=== PATIENT | female | born 1995 | race Caucasian/White ===

== ENCOUNTER 2021-09-18 18:00 | Emergency (ER) | payer OTHER ==
[~2021-09-18] VITALS: Ht 177.8 cm; Wt 81.6 kg
[2021-09-18] MEDS ORDERED: DOXYCYCLINE MO100 M1 PO (19:38)
== END 2021-09-18 20:13 | disposition home or self-care (01) ==
LOC: ED 18:00
DX: L03.116 Cellulitis of left lower limb (principal); Z79.899 Other long term (current) drug therapy
CPT/HCPCS: 99283

== ENCOUNTER 2023-07-04 08:20 | Inpatient (IN) | payer OTHER ==
[~2023-07-04] VITALS: Ht 177.8 cm; Wt 98.0 kg
[~2023-07-04 08:20] MED LIST: DOXYCYCLINE MO100 M1 PO
[2023-07-04 09:29] LABS: HEMATOCRIT 38.1 % (35.0-50.0); HEMOGLOBIN 12.4 g/dL (12.0-18.0); MCH 28.1 (27-36); MCHC 32.6 g/dl (30-36); MCV 86.4 fl (81-99); RBC 4.41 M/ul (4.3-5.7); RDW 14.8 (10.5-15.0)
[2023-07-04 09:50] VITALS: BP 133/72
[2023-07-04 10:07] LABS: AMPHETAMINES, URINE NEGATIVE (NEGATIVE); BARBITURATES, URINE NEGATIVE (NEGATIVE); BENZODIAZEPINE, URINE NEGATIVE (NEGATIVE); BUPRENORPHINE, URINE NEGATIVE (NEGATIVE); CANNABINOID, URINE NEGATIVE (NEGATIVE); COCAINE, URINE NEGATIVE (NEGATIVE); ECSTASY, URINE NEGATIVE (NEGATIVE); FENTANYL, URINE NEGATIVE (NEGATIVE); METHADONE, URINE NEGATIVE (NEGATIVE); OPIATES, URINE NEGATIVE (NEGATIVE); OXYCODONE, URINE NEGATIVE (NEGATIVE); PHENCYCLIDINE, URINE NEGATIVE (NEGATIVE)
[2023-07-04 10:08] VITALS: BP 133/72
[2023-07-04 10:09] LABS: ABO A
[2023-07-04 10:10] LABS: ANTIBODY SCREEN NEGATIVE; RH POSITIVE
--- NOTE | 2023-07-04 17:27 | PR ---
[facility] [address] [place], [place] [address] Signed Progress Notes IP Datetime Report Generated by CPN: 07/04/2023 17:27 PROGRESS NOTES: [id number] Impression: Reassuring Heart Rate Procedures: Sterile Vag Exam Plan: Continue Present Management Other Plans: Consider epidural / IUPC placement VITAL SIGNS: [id number] Vital Signs: Reviewed; Within Normal Limits EXAM: [id number] Dilatation: 3.0 Effacement: 80 Station: -1 Contractions: q 2 min MEMBRANES: [id number] Membranes Status: Intact Amniotic Fluid Color: Clear ROM Note: More clear fluid noted Comments: Pt seen and examined. Very uncomfortable w/ contractions. Pt now 3cm / 80. Discussed slow progress on pitocin and recommended intrauterine monitoring of contraction strength w/ IUPC. Contractions and cervical exams very uncomfortable and recommend epidural placement prior to IUPC. Pt will consider. FETUS A: [id number] FHR Baseline: 145 Variability: Moderate 6-25bpm Accelerations: 15X15 Decelerations: None FHR Category: Category I Presentation: Vertex Comments on Fetus A: No evidence of metabolic acidosis FETUS B: [id number] Signing Physician: Cindi Murphy DO Copies: ~ *Electronically Signed* 07/04/23 7875 CINDI MURPHY (FELICITA) DO PATIENT NAME: JOHN OLSON PROGRESS NOTE DATE OF : 97 PHYSICIAN: CINDI MURPHY (JD) DO RPT #: [id number] REPORT IS CONFIDENTIAL AND NOT TO BE RELEASED WITHOUT AUTHORIZATION
--- NOTE | 2023-07-04 20:24 | PR ---
[facility] [address] [facility] [place], [place] [address] Signed Progress Notes IP Datetime Report Generated by IRMA: 07/04/2023 20:24 PROGRESS NOTES: [id number] Impression: Reassuring Heart Rate Procedures: Intrauterine Pressure Catheter; Sterile Vag Exam Plan: Continue Present Management Other Plans: Consider epidural / IUPC placement VITAL SIGNS: [id number] Vital Signs: Reviewed; Within Normal Limits EXAM: [id number] Dilatation: 3.5 Effacement: 90 Station: -2 Contractions: q 3 to 4 min MEMBRANES: [id number] Membranes Status: Intact Amniotic Fluid Color: Clear ROM Note: More clear fluid noted Comments: Minimal progress. Will place IUPC and restart pitocin as needed. FETUS A: [id number] FHR Baseline: 145 Variability: Moderate 6-25bpm Accelerations: 15X15 Decelerations: None FHR Category: Category I Presentation: Vertex Comments on Fetus A: No evidence of metabolic acidosis FETUS B: [id number] Signing Physician: Dhara Dorman MD Copies: ~ *Electronically Signed* 07/04/232023 DHARA DORMAN MD PATIENT NAME: JOHN OLSON PROGRESS NOTE DATE OF : 97 PHYSICIAN: DHARA DORMAN MD RPT #: [id number] REPORT IS CONFIDENTIAL AND NOT TO BE RELEASED WITHOUT AUTHORIZATION
--- NOTE | 2023-07-04 21:59 | PR ---
[facility] [address] [facility] [place], [place] [address] Signed Progress Notes IP Datetime Report Generated by CPN: 07/04/2023 21:59 PROGRESS NOTES: [id number] Impression: Reassuring Heart Rate Procedures: Sterile Vag Exam Plan: Continue Present Management Other Plans: Consider epidural / IUPC placement VITAL SIGNS: [id number] Vital Signs: Reviewed; Within Normal Limits EXAM: [id number] Dilatation: 4.0 Effacement: 90 Station: -2 Contractions: q 2 to 4 min MEMBRANES: [id number] Membranes Status: Intact Amniotic Fluid Color: Clear ROM Note: More clear fluid noted Comments: Comfortable. Some progress. Contraction pattern adequate overall and status reassuring. Will continue. FETUS A: [id number] FHR Baseline: 145 Variability: Moderate 6-25bpm Accelerations: 15X15 Decelerations: None FHR Category: Category I Presentation: Vertex Comments on Fetus A: No evidence of metabolic acidosis FETUS B: [id number] Signing Physician: Dhara Dorman MD Copies: ~ *Electronically Signed* 07/04/23 2159 DHARA DORMAN MD PATIENT NAME: JOHN OLSON PROGRESS NOTE DATE OF : 97 PHYSICIAN: DHARA DORMAN MD RPT #: [id number] REPORT IS CONFIDENTIAL AND NOT TO BE RELEASED WITHOUT AUTHORIZATION
--- NOTE | 2023-07-05 05:05 | PR ---
[facility] [address] [facility] [place], [place] [address] Signed Progress Notes IP Datetime Report Generated by IRMA: 07/05/2023 05:05 PROGRESS NOTES: [id number] Impression: Normal Progression of Labor; Reassuring Heart Rate Procedures: Sterile Vag Exam Plan: Continue Present Management Other Plans: Consider epidural / IUPC placement VITAL SIGNS: [id number] Vital Signs: Reviewed; Within Normal Limits EXAM: [id number] Dilatation: 7.0 Effacement: 90 Station: -1 Contractions: q 2 to 4 min MEMBRANES: [id number] Membranes Status: Intact Amniotic Fluid Color: Clear ROM Note: More clear fluid noted Comments: Progressing well. Will continue. FETUS A: [id number] FHR Baseline: 145 Variability: Moderate 6-25bpm Accelerations: 15X15 Decelerations: None FHR Category: Category I Presentation: Vertex Comments on Fetus A: No evidence of metabolic acidosis FETUS B: [id number] Signing Physician: Dhara Dorman MD Copies: ~ *Electronically Signed* 07/05/23 0505 DHARA DORMAN MD PATIENT NAME: JOHN OLSON PROGRESS NOTE DATE OF : 97 PHYSICIAN: DHARA DORMAN MD RPT #: [id number] REPORT IS CONFIDENTIAL AND NOT TO BE RELEASED WITHOUT AUTHORIZATION
[2023-07-06 05:30] LABS: HEMATOCRIT 31.8 % (35.0-50.0); HEMOGLOBIN 10.4 g/dL (12.0-18.0); MCH 28.4 (27-36); MCHC 32.8 g/dl (30-36); MCV 86.7 fl (81-99); RBC 3.67 M/ul (4.3-5.7)
--- NOTE | 2023-07-06 07:21 | PR ---
[facility] [address] [facility] [place], [place] [address] Signed PP Progress Notes Datetime Report Generated by IRMA: 07/06/2023 07:21 SUBJECTIVE: [id number] Pain: Within Normal Limits Bowel Movement: No Vital Signs: [id number] Vital Signs: Reviewed; Within Normal Limits Cardiovascular: Not Done Respiratory: Not Done Abdomen/Uterus: Abnormal Lochia: Normal Vulva/Perineum: Not Done Breasts: Not Done CVA Tenderness: Not Done Extremities: Normal Incision: Not Applicable Progress: Abnormal Exam Comments: Fundus firm, NT @ U-1. H/H 10.4/31.8, WBC 16.2, plat 275k IMPRESSION/PLAN/PROCEDURES: [id number] Impression: Normal Progression; Difficulties Plan: Continue Present Management Procedures: None Progress Notes: Doing well except for breast feeding issues. Will work on this today with probable discharge in the am. Signing Physician: Dhara Dorman MD Copies: ~ *Electronically Signed* 07/06/23 0721 DHARA DORMAN MD PATIENT NAME: JOHN OLSON PROGRESS NOTE DATE OF : 97 PHYSICIAN: DHARA DORMAN MD RPT #: [id number] REPORT IS CONFIDENTIAL AND NOT TO BE RELEASED WITHOUT AUTHORIZATION
--- NOTE | 2023-07-07 07:17 | PR ---
[facility] [address] [facility] [place], [place] [address] Signed PP Progress Notes Datetime Report Generated by IRMA: 07/07/2023 07:16 SUBJECTIVE: [id number] Pain: Within Normal Limits Bowel Movement: No Vital Signs: [id number] Vital Signs: Reviewed; Within Normal Limits Cardiovascular: Not Done Respiratory: Not Done Abdomen/Uterus: Abnormal Lochia: Normal Vulva/Perineum: Not Done Breasts: Not Done CVA Tenderness: Not Done Extremities: Normal Incision: Not Applicable Progress: Abnormal Exam Comments: Fundus firm, NT @ U-2. IMPRESSION/PLAN/PROCEDURES: [id number] Impression: Normal Progression; Difficulties Plan: Consult; Discharge Procedures: None Progress Notes: Doing well. She is still having some issues with breast feeding, however. Hopefully, consult can be arranged today. Signing Physician: Dhara Dorman MD Copies: ~ *Electronically Signed* 07/07/23715 DHARA DORMAN MD PATIENT NAME: JOHN OLSON PROGRESS NOTE DATE OF : 97 PHYSICIAN: DHARA DORMAN MD RPT #: [id number] REPORT IS CONFIDENTIAL AND NOT TO BE RELEASED WITHOUT AUTHORIZATION
--- NOTE | 2023-07-07 09:47 | NUR ---
ROUNDS. PT RECEIVING NURSING CARE. DID NOT DISTURB; PROVIDED SILENT PRAYER.
== END 2023-07-07 14:20 | disposition home or self-care (01) | DRG 807 ==
LOC: FBCO 08:20 → FBC 09:06
PROVIDERS: Obstetrics & Gynecology; ADMIT Obstetrics & Gynecology; ATTEND Obstetrics & Gynecology
PROC: 10E0XZZ Delivery of Products of Conception, External Approach (ICD-10-PCS; principal; 2023-07-05)
PROC: 0KQM0ZZ Repair Perineum Muscle, Open Approach (ICD-10-PCS; 2023-07-05)
PROC: 3E0R3BZ Introduction of Anesthetic Agent into Spinal Canal, Percutaneous Approach (ICD-10-PCS; 2023-07-05)
PROC: 00HU33Z Insertion of Infusion Device into Spinal Canal, Percutaneous Approach (ICD-10-PCS; 2023-07-05)
PROC: 0UQMXZZ Repair Vulva, External Approach (ICD-10-PCS; 2023-07-05)
PROC: 10H07YZ Insertion of Other Device into Products of Conception, Via Natural or Artificial Opening (ICD-10-PCS; 2023-07-05)
DX: O76 Abnormality in fetal heart rate and rhythm complicating labor and delivery (principal); Z37.0 Single live birth; O69.1XX0 Labor and delivery complicated by cord around neck, with compression, not applicable or unspecified; Z3A.38 38 weeks gestation of pregnancy; O70.1 Second degree perineal laceration during delivery
CPT/HCPCS: 01960; 36415; 80307; 85027; 86850; 86900; 86901; A9270; J2001; J2405; J2590; J2795; J7121